=== PATIENT | male | born 1990 ===

== ENCOUNTER → 2018-03-03 | Outpatient (REF) | payer OTHER ==
[2018-03-03 14:08] LABS: SEMEN APPEARANCE OPAQUE (OPAQUE); SEMEN VISCOSITY LIQUID (LIQUID); SEMEN VOLUME 2.5 ml (4.0-5.0)
[2018-03-03 14:09] LABS: IMMMOTILE SPERM CENTRIFUGED ABSENT (ABSENT); IMMOTILE SPERM ABSENT (ABSENT); MOTILE SPERM ABSENT (ABSENT); MOTILE SPERM CENTRIFUGED ABSENT (ABSENT); SEMEN pH 8.5 (7.0-8.0); WBC CONCENTRATION >1 M/ml (<=1 M/ml)
== END ==
LOC: M LAB REF 13:39
DX: Z98.52 Vasectomy status (principal)